=== PATIENT | female | born 1985 | race Caucasian/White ===

== ENCOUNTER 2019-09-14 13:48 | Outpatient (CLI) | payer OTHER ==
--- NOTE | 2019-09-14 15:26 | MRI ---
MRI OF THE BRAIN WITHOUT AND WITH CONTRAST: Date: 09/14/2019 COMPARISON: None. HISTORY: Bilateral arm and hand retraction and toe curling for five years. Multiple sclerosis. TECHNIQUE: Multiplanar, multisequence MR images were obtained of the brain without and with IV contrast. FINDINGS: This exam is limited secondary to motion artifact. The brain demonstrates normal signal intensity on all obtained sequences. No restricted diffusion or abnormal enhancement is seen. No high T2 or FLAIR signal lesions are seen in the white matter. The expected flow-voids are present. The corpus callosum, pituitary, and craniocervical junction are unremarkable. The visualized paranasal sinuses and mastoid air cells are well aerated. The calvarium and overlying soft tissues are unremarkable. IMPRESSION: No significant intracranial abnormality. POS: [facility]
== END 2019-09-14 13:49 | disposition home or self-care (01) ==
LOC: SCSMRI 13:48
PROVIDERS: ATTEND Psychiatry & Neurology Neurology
DX: G35 Multiple sclerosis (principal); G43.019 Migraine without aura, intractable, without status migrainosus
CPT/HCPCS: 70553